=== PATIENT | female | born 1965 | race Caucasian/White ===

== ENCOUNTER → 2016-12-21 | Outpatient (CLI) | payer BC ==
--- NOTE | 2016-12-22 07:55 | MAMMOGRAPHY REPORT ---
BILATERAL DIGITAL SCREENING MAMMOGRAM TOMOSYNTHESIS WITH CAD: 12/21/2016 CLINICAL HISTORY: Routine screening. Patient has no complaints. TECHNIQUE: Breast tomosynthesis in addition to standard 2D mammography was performed. Current study was also evaluated with a Computer Aided Detection (CAD) system. COMPARISON: Comparison is made to exams dated: 12/19/2015 mammogram, 12/17/2014 mammogram, 12/10/2013 m ammogram, 12/05/2012 mammogram, 12/01/2012 mammogram, and 12/01/2011 mammogram - [facility]. BREAST COMPOSITION: The tissue of both breasts is heterogeneously dense, which may obscure small mas ses. FINDINGS: There is a 6 mm asymmetry in the far superior, posterior right breast, projecting over the pectoralis muscle on the MLO view, that is increasingly conspicuous compared to prior mammograms. A lthough this could represent overlapping fibroglandular tissue, additional spot compression tomosynth esis views and possibly ultrasound are recommended. There is a stable benign coarse calcification in the upper inner quadrant of the left breast. No othe r suspicious mass, architectural distortion or cluster of microcalcifications is seen. IMPRESSION: ACR BI-RADS CATEGORY 0: INCOMPLETE EVALUATION: NEED ADDITIONAL IMAGING EVALUATION The 6 mm asymmetry in the superior, posterior right breast needs additional evaluation. The patient will be called to schedule an appointment. Approximately 10% of breast cancers are not detected with mammography. A negative mammographic report should not delay biopsy if a clinically suggestive mass is present. Andreia Gutierrez M.D. ay/:12/21/2016 18:43:22 Senior Ui Developer: Dilia CAMPUZANO([place])(Leila)([id number]), [facility] letter sent: Addl Imaging 0 BI-RADS Code: ACR BI-RADS Category 0: Incomplete Evaluation: Need Additional Imaging Evaluation
== END | disposition home or self-care (01) ==
LOC: C.MAMM 08:20
PROVIDERS: ATTEND Nurse Practitioner Family
DX: Z12.31 Encounter for screening mammogram for malignant neoplasm of breast (principal); N64.89 Other specified disorders of breast

== ENCOUNTER → 2016-12-29 | Outpatient (CLI) | payer BC ==
--- NOTE | 2016-12-29 13:49 | MAMMOGRAPHY REPORT ---
UNILATERAL RIGHT DIGITAL DIAGNOSTIC MAMMOGRAM TOMOSYNTHESIS: 12/29/2016 CLINICAL HISTORY: 51-year-old woman called back from screening mammography for an asymmetry in the nguyễn perior posterior right breast, projecting over the pectoralis muscle on the MLO view. TECHNIQUE: Spot compression 2-D and tomosynthesis right MLO and ML views were obtained. COMPARISON: Comparison is made to exams dated: 12/21/2016 mammogram, 12/19/2015 mammogram, 12/17/2014 m ammogram, 12/10/2013 mammogram, 12/05/2012 mammogram, and 12/05/2012 ultrasound - [facility]. BREAST COMPOSITION: There are scattered areas of fibroglandular density in the right breast. FINDINGS: There is complete effacement of the 6 mm asymmetry in the superior posterior right breast, projecting over the pectoralis muscle. Both of supplemental mammographic views and, synthesis images fail to demonstrate a persistent asymmetry or suspicious mass in the superior posterior breast. No focal area of architectural distortion or suspicious microcalcifications. The asymmetry most likely represented normal overlapping fibroglandular tissue and could have been secondary to a skin fold see n higher in the axillary region. Overall there is no mammographic evidence of malignancy in the righ t breast. Recommend return to annual screening mammography schedule. IMPRESSION: ACR BI-RADS CATEGORY 2: BENIGN There is complete effacement of the 6 mm asymmetry in the superior posterior right breast with both s upplemental mammographic views and tomosynthesis images. There is no mammographic evidence of malign angelika in the right breast. Return to annual mammogram screening schedule is recommended. The patient has been verbally notified of the results. Approximately 10% of breast cancers are not detected with mammography. A negative mammographic report should not delay biopsy if a clinically suggestive mass is present. Andreia Gutierrez M.D. ay/:12/29/2016 10:55:28 Jail Officer: Christy WALSH)(Leila), [facility] letter sent: Normal 1/2 BI-RADS Code: ACR BI-RADS Category 2: Benign
== END | disposition home or self-care (01) ==
LOC: C.MAMM 08:35
PROVIDERS: ATTEND Nurse Practitioner Family
DX: R92.8 Other abnormal and inconclusive findings on diagnostic imaging of breast (principal)

== ENCOUNTER → 2017-04-12 | Outpatient (CLI) | payer BC ==
--- NOTE | 2017-04-12 10:22 | DIAGNOSTIC IMAGING REPORT ---
R FOOT MIN 3 VIEWS ROUTINE CLINICAL HISTORY: Right foot pain status post trauma COMPARISON: None. DISCUSSION: No fractures or dislocations are visualized. IMPRESSION: No fractures or dislocations identified. Electronically signed by: Fransisco Holly M.D. 04/12/2017 10:20 AM Dictated Date/Time: 04/12/2017 10:20 AM
== END | disposition home or self-care (01) ==
LOC: C.RAD1850 09:54
PROVIDERS: ATTEND Student in an Organized Health Care Education/Training Program
DX: S99.921A Unspecified injury of right foot, initial encounter (principal); X58.XXXA Exposure to other specified factors, initial encounter